=== PATIENT | female | born 1990 | race African-American/Black ===

== ENCOUNTER 2020-02-04 12:24 | Emergency (ER) | payer SELFPAY ==
[~2020-02-04] VITALS: Ht 172.7 cm; Wt 103.0 kg
[2020-02-04 12:49] VITALS: BP 131/87
[2020-02-04] MEDS: DEXAMETHASONE SOD PHOS 10 MG/ML VIAL. PO ONE (13:00)
[2020-02-04 13:41] LABS: INFLUENZA A PATIENT NEGATIVE (NEGATIVE); INFLUENZA B PATIENT NEGATIVE (NEGATIVE)
--- NOTE | 2020-02-04 13:57 | RAD ---
EXAM: CHEST ONE VIEW. HISTORY: Cough. COMPARISON: None. FINDINGS: A frontal view of the chest is obtained. The inspiration is small. There are no confluent infiltrates. There is no pneumothorax or pleural effusion. The heart is not enlarged. IMPRESSION: 1. No confluent infiltrates. Electronically signed by: Trell Evangelista MD (02/04/2020 1:54 PM) [facility]
[2020-02-04] MEDS ORDERED: ALBU2.5V8 IH (14:17)
[2020-02-04] MEDS ORDERED: METH4TAB2 PO (14:17)
--- NOTE | 2020-02-04 14:17 | PHYS DOC ---
Past History Past Medical History: Bronchitis, COPD, Other Additional Past Medical Histor: PCOS (MALENA AJ APRN) Past Surgical History: Tonsillectomy (MALENA AJ APRN) Alcohol Use: None (MALENA AJ APRN) General Adult EDM: Chief Complaint: SHORTNESS OF BREATH HPI: HPI: Patient is a 29-year-old AA female who presents to the emergency department with complaints of a dry barky cough, chest tenderness with coughing, decreased taste and smell, nasal congestion, body aches, fatigue, and diarrhea. She reports her symptoms began 5 days ago. She denies any measured fever. She states that she has had hot and cold chills. Patient denies any nausea, vomiting, palpitations, abdominal pain, bloody stools, rash, sore throat, or headache. She states that she has a history of bronchitis and typically gets sick with bronchitis every year around this time. Patient denies any known exposure to anyone with COVID- 19 however she has recently moved here from [place]. She denies any dizziness, syncope, or vision changes. She currently rates her discomfort in her chest with a 2 out of 10 on the pain scale, the pain is worse with cough. (MALENA AJ APRN) Review of Systems: Review of Systems: Complete ROS is negative unless otherwise noted in HPI. (MALENA AJ APRN) Current Medications: Current Meds: Current Medications Medications (Trade) Dose Ordered Sig/Kathy Start Time Stop Time Status Last Admin Dose Admin Dexamethasone Sodium Phosphate (Decadron) 10 mg 1X ONCE 02/04/20 13:00 02/04/20 13:01 DC 02/04/20 13:00 10 MG (MALENA AJ APRN) Allergies: Allergies: Allergies Coded Allergies Type Severity Reaction Last Updated Verified Sulfa (Sulfonamide Antibiotics) Allergy Unknown 02/04/20 Yes (MALENA AJ APRN) Physical Exam: PE: See Above Constitutional: Well developed, well nourished, no acute distress, non-toxic appearance. [] HENT: Normocephalic, atraumatic, bilateral external ears normal, nose normal. [] Eyes: PERRLA, EOMI, conjunctiva normal, no discharge. [] Neck: Normal range of motion, no stridor. [] Cardiovascular:Heart rate regular rhythm Lungs & Thorax: Respirations even and unlabored, no retractions, no respiratory distress, speaking full sentences Skin: Warm, dry, no erythema, no rash. [] Extremities: No cyanosis, ROM intact, no edema. [] Neurologic: Alert and oriented X 3, no focal deficits noted. [] Psychologic: Affect normal, judgement normal, mood normal. [] (MALENA AJ APRN) Current Patient Data: Labs: Laboratory Tests Test 02/04/20 13:06 02/04/20 13:14 Influenza Type A (Rapid) Negative (NEGATIVE) Influenza Type B (Rapid) Negative (NEGATIVE) POC Urine HCG, Qualitative hcg negative (Negative) Vital Signs: Vital Signs Date Time Temp Pulse Resp B/P (MAP) Pulse Ox O2 Delivery O2 Flow Rate FiO2 02/04/20 12:49 98.1 108 18 131/87 (102) Room Air (MALENA AJ APRN) EKG: EKG: [] (MALENA AJ APRN) Radiology/Procedures: Radiology/Procedures: PROCEDURE: CHEST AP ONLY EXAM: CHEST ONE VIEW. HISTORY: Cough. COMPARISON: None. FINDINGS: A frontal view of the chest is obtained. The inspiration is small. There are no confluent infiltrates. There is no pneumothorax or pleural effusion. The heart is not enlarged. IMPRESSION: 1. No confluent infiltrates.[] (MALENA AJ APRN) Heart Score: Risk Factors: Risk Factors: DM, Current or recent (<one month) smoker, HTN, HLP, family history of CAD, obesity. Risk Scores: Score 0 - 3: 2.5% MACE over next 6 weeks - Discharge Home Score 4 - 6: 20.3% MACE over next 6 weeks - Admit for Clinical Observation Score 7 - 10: 72.7% MACE over next 6 weeks - Early Invasive Strategies (MALENA AJ APRN) Course & Med Decision Making: Course & Med Decision Making Pertinent Labs and Imaging studies reviewed. (See chart for details) 29-year-old female presents emergency department with complaints of Covid-like symptoms. Chest x-ray unremarkable. "10 mg p.o. Decadron in the emergency department. She reported decreased chest tightness and felt like her breathing was better after this medication. Advised patient that her flu testing was negative today. Prescriptions are written for Z-Randal and albuterol inhaler. Patient provided with quarantine instructions. Encouraged contact the ER if her symptoms worsen or fever did not respond to medications. Patient verbalized an understanding of home care, medications, follow-up, and return to ED instructions and was in agreement with the plan of care. [] (MALENA AJ APRN) Dragon Disclaimer: Kelly Disclaimer: This electronic medical record was generated, in whole or in part, using a voice recognition dictation system. (MALENA AJ APRN) Departure Departure: Impression: Primary Impression: COVID-19 Disposition: 01 DC HOME SELF CARE/HOMELESS Condition: STABLE Referrals: PCP,ALEXIA (PCP) Patient Instructions: Upper Respiratory Infection, Adult, [id number] Additional Instructions: Fill prescription(s) and use as directed. Recommend use of a Cool mist humidifier in room at bedtime. Alternate Tylenol or ibuprofen as needed for pain/fever. Increase clear fluids. Avoid airway triggers such as smoke, fragrance, dust, and pollen. May take [id number] cough suppressants as needed. Follow-up with your primary care doctor if symptoms persist, return to the ER if symptoms worsen. You have been tested for or diagnosed with COVID-19. It is an infection caused by a new type of coronavirus. COVID-19 will cause cold-like or mild flu symptoms in most. It can cause more severe symptoms like problems breathing in some. There is no treatment for COVID-19. The body will clear the infection over time. Self-care will help to ease discomfort. Steps to Take: Self-Care Rest as needed. Healthy habits may help you feel better. Steps include: Choose healthy foods including fruits and vegetables. Drink water throughout the day. Get plenty of sleep each night. If you smoke, try to quit. It may ease breathing. Avoid alcohol. Keep Others Healthy The virus can spread to others. Droplets are released every time you sneeze or cough. The droplets can get into the mouth, nose, or eyes of people near you and lead to infection. To lower the chances of spreading COVID-19 to others: Stay at home until your doctor has said it is safe to leave. If you tested positive this will mean staying isolated until both of the following are true: At least 7 days have passed since the start of illness. You are free of fever for at least 72 hours without the use of medicine. During this time: - Avoid public areas, events, or transportation. Do not return to work or school until your doctor has said it is safe to do so. - Call ahead if you need to go to a medical center. Let them know you may have COVID-19. It will help them guide you where to go. They may also ask you to wear a facemask when you come to the office. - If you call for emergency medical services, let them know you may have COVID- 19. While at home: - Try to avoid close contact with others. Stay about 6 feet away. - If possible, spend most of your time in a separate room from others. - Use a face mask if you will be in close contact with others such as sharing a room or vehicle. - Have someone wipe down common surfaces in the home. Use household sugar cane planting equipment operator every day on areas like doorknobs, counters, or sinks. - Cough or sneeze into a tissue. Throw the tissue away right after use. If a tissue is not available, cough or sneeze into your elbow. - Wash your hands often. Wash them after sneezing or coughing. Use soap and water and wash for at least 20 seconds. Alcohol based hand freight car cleaner can be used if soap and wa ter is not available. - Do not prepare food for others. Avoid sharing personal items like forks, spoons, or toothbrushes. - Avoid close contact with pets while you are sick. There is no evidence of the virus passing to pets. This is a safety step until more is known about this virus. Isolation can be frustrating. Social interaction can help. Keep in touch with friends and family through phone and tech options. You can still interact with others in your home, just keep a safe distance of about 6 feet. Follow-up: Your doctors office will check in with you to see if there are any changes in your health. You may be asked to keep track of symptoms to share with them. They will also let you know when you are clear to be in public again. Problems to Look Out For: Contact your doctor if your recovery is not going as you expect. Get emergency care if you have problems such as: - Trouble breathing - Nonstop chest pain or pressure - Changes in awareness, confusion, or problems waking - Lips or face have bluish color - Worsening of symptoms If you think you have an emergency, call for emergency medical services right away. As taken from [facility] Albuterol Sulfate (PROAIR HFA INHALER) 8.5 Gm Hfa.aer.ad 2 PUFF IH PRN Q4-6HRS PRN for wheezing for 21 Days, #1 INHALER 0 Refills as needed for wheezing Prov: MALENA AJ APRN 02/04/20 Methylprednisolone (MEDROL) 4 Mg Tab.ds.pk 1 PKG PO UD for inflammation for 6 Days, #1 PKG 0 Refills Prov: MALENA AJ APRN 02/04/20 Attending Signature Attending Signature I have reviewed the PA/SUPERVISOR [employer]NANCE's note and plan of care. I was available for consultation as needed during the patient's visit in the emergency department. I agree with the clinical impression, plan, and disposition. (REGGIE EARL DO) MALENA AJ APRN Feb 04, 2020 14:17 REGGIE EARL DO Feb 05, 2020 00:17
== END 2020-02-04 14:23 | disposition home or self-care (01) ==
LOC: ER 12:24
DX: U07.1 COVID-19 (principal); R05 Cough; R09.81 Nasal congestion; R19.7 Diarrhea, unspecified; R53.83 Other fatigue; J44.9 Chronic obstructive pulmonary disease, unspecified; Z90.89 Acquired absence of other organs
CPT/HCPCS: 71045; 81025; 87804; 99284; C9803; J1100; U0003